=== PATIENT | male | born 1950 | race African-American/Black ===

== ENCOUNTER 2021-04-28 14:47 | Inpatient (IN) | payer MEDICAID, OTHER ==
[~2021-04-28] VITALS: Ht 172.7 cm; Wt 71.7 kg
[~2021-04-28 14:47] MED LIST: ASPI-1406 PO; BENA10TA74 PO; DORZ10DR8 BOTHEYE; HYDR25TA PO; LEVO500T2 PO; METH-773 PO; MIRT-90 PO; PHEN100C4 PO; PRAN1 PO; RISP3 PO; TRAV2.5D9 BOTHEYE; [UNRECOGNIZED DRUG - CODE] MC; [UNRECOGNIZED DRUG - CODE] PO
[2021-04-28 17:38] LABS: CHLORIDE 109 mEq/L (98-107)
[2021-04-28 17:42] LABS: BASOPHILS % 0.5 % (0.0-2.0); EOSINOPHILS % 1.2 % (0.0-5.0); HEMATOCRIT. 43.9 % (42.0-52.0); HEMOGLOBIN. 14.7 g/dL (14.0-18.0); LYMPHOCYTES % 18.8 % (20.0-50.0); MEAN CORPUSCULAR HEMOGLOBIN 30.8 pg (28.0-32.0); MEAN CORPUSCULAR VOLUME 92.2 fL (80.0-94.0); MEAN PLATELET VOLUME 9.6 fl (7.4-10.4); MONOCYTES % 5.6 % (2.0-8.0); NEUTROPHILS % 73.9 % (40.0-76.0); PLATELET 339 x1000/uL (130-400); RED BLOOD CELL COUNT 4.76 mill/uL (4.7-6.1)
[2021-04-28 19:31] LABS: ETHANOL BLOOD < 10 mg/dL
[2021-04-28 20:11] LABS: CLARITY URINE CLEAR (CLEAR); COLOR URINE YELLOW (YELLOW); KETONES URINE NEGATIVE (NEGATIVE); LEUKOCYTE ESTERASE URINE NEGATIVE (NEGATIVE); NITRITE URINE NEGATIVE (NEGATIVE); OCCULT BLOOD URINE NEGATIVE (NEGATIVE); PH URINE 5.5 (4.5-8.0); PROTEIN URINE NEGATIVE (NEGATIVE); SPECIFIC GRAVITY URINE 1.026 (1.005-1.030)
[2021-04-28 20:21] LABS: *COCAINE SCREEN URINE NEGATIVE (NEGATIVE); OPIATES URINE SCREEN NEGATIVE (NEGATIVE); PHENCYCLIDINE URINE SCREEN NEGATIVE (NEGATIVE)
[2021-04-28 20:22] LABS: *AMPHETAMINES SCREEN URINE NEGATIVE (NEGATIVE); *BARBITURATES SCREEN URINE NEGATIVE (NEGATIVE); *BENZODIAZEPINES SCREEN URINE NEGATIVE (NEGATIVE); CANNABINOID URINE SCREEN PRESUMTIVE POSITIVE (NEGATIVE); METHADONE URINE SCREEN NEGATIVE (NEGATIVE)
[2021-04-29 08:45] VITALS: BP 168/85
[2021-04-29] MEDS ORDERED: METF500S7 PO (09:15)
[2021-04-29] MEDS ORDERED: INSU100I28 SQ (09:16)
[2021-04-29] MEDS ORDERED: ATOR-2 PO (09:20)
[2021-04-29] MEDS ORDERED: QUET25TA PO (09:20)
[2021-04-29] MEDS ORDERED: SACU1TAB MT (09:20)
[2021-04-29] MEDS ORDERED: SPIR25TA6 PO (09:20)
[2021-04-29] MEDS ORDERED: CARV12.545 PO (09:20)
[2021-04-29] MEDS ORDERED: DEXTROSE 50% WATER 50ML SYRINGE IV PRN (10:00)
[2021-04-29] MEDS: BLOOD SUGAR DIAGNOSTIC STRIP TEST SCH ×3 (11:40→21:08)
[2021-04-29 12:05] VITALS: BP 138/76
[2021-04-29 12:10] LABS: BASOPHILS % 0.7 % (0.0-2.0); EOSINOPHILS % 1.6 % (0.0-5.0); HEMATOCRIT. 43.7 % (42.0-52.0); HEMOGLOBIN. 13.9 g/dL (14.0-18.0); LYMPHOCYTES % 32.4 % (20.0-50.0); MEAN CORPUSCULAR HEMOGLOBIN 29.7 pg (28.0-32.0); MEAN CORPUSCULAR VOLUME 93.3 fL (80.0-94.0); MEAN PLATELET VOLUME 9.1 fl (7.4-10.4); MONOCYTES % 6.9 % (2.0-8.0); NEUTROPHILS % 58.4 % (40.0-76.0); PLATELET 341 x1000/uL (130-400); RED BLOOD CELL COUNT 4.69 mill/uL (4.7-6.1); RED CELL DISTRIBUTION WIDTH 14.4 % (11.6-14.6)
[2021-04-29] MEDS: INSULIN LISPRO 100 UNITS/ML SUBCUT SCH ×3 (12:10→21:00)
[2021-04-29 12:16] LABS: CHLORIDE 109 mEq/L (98-107)
[2021-04-29] MEDS: SPIRONOLACTONE 25MG TABLET PO SCH (12:45)
[2021-04-29] MEDS: ASPIRIN 81MG TABLET PO SCH (12:45)
[2021-04-29] MEDS: AMLODIPINE 5MG TABLET PO SCH (12:45)
[2021-04-29 16:00] VITALS: BP 134/83
[2021-04-29] MEDS: METFORMIN HCL 500MG TABLET PO SCH (17:50)
[2021-04-29 20:00] VITALS: BP 137/82
[2021-04-29] MEDS ORDERED: ATORVASTATIN CALCIUM 40MG TABLET PO SCH (21:00)
[2021-04-29] MEDS ORDERED: QUETIAPINE FUMARATE 25MG TABLET PO SCH (21:00)
[2021-04-30] VITALS: BP 133/76
[2021-04-30 04:00] VITALS: BP 133/82
[2021-04-30] MEDS: METFORMIN HCL 500MG TABLET PO SCH (06:15)
[2021-04-30] MEDS: BLOOD SUGAR DIAGNOSTIC STRIP TEST SCH ×2 (06:53→10:52)
[2021-04-30] MEDS: INSULIN LISPRO 100 UNITS/ML SUBCUT SCH (06:53)
[2021-04-30 08:00] VITALS: BP 122/72
[2021-04-30] MEDS: ASPIRIN 81MG TABLET PO SCH (09:11)
[2021-04-30] MEDS: AMLODIPINE 5MG TABLET PO SCH (09:11)
[2021-04-30] MEDS: SPIRONOLACTONE 25MG TABLET PO SCH (09:11)
[2021-04-30 12:00] VITALS: BP 131/73
[2021-04-30 15:03] VITALS: BP 131/73
== END 2021-04-30 16:15 | disposition home or self-care (01) | DRG 48 ==
LOC: ER 14:58 → MICUSO 23:44 → 7EST 04-29 08:35
PROVIDERS: ADMIT Family Medicine; ATTEND Family Medicine
DX: G90.8 Other disorders of autonomic nervous system (principal); N17.9 Acute kidney failure, unspecified; F03.90 Unspecified dementia, unspecified severity, without behavioral disturbance, psychotic disturbance, mood disturbance, and anxiety; I50.9 Heart failure, unspecified; I11.0 Hypertensive heart disease with heart failure; I16.0 Hypertensive urgency; E78.5 Hyperlipidemia, unspecified; Z20.822 Contact with and (suspected) exposure to COVID-19; E11.9 Type 2 diabetes mellitus without complications; I44.7 Left bundle-branch block, unspecified; F12.90 Cannabis use, unspecified, uncomplicated; Z79.899 Other long term (current) drug therapy; Z79.82 Long term (current) use of aspirin; Z79.2 Long term (current) use of antibiotics
CPT/HCPCS: 36415; 71045; 80048; 80053; 80305; 80320; 81003; 82962; 83036; 83880; 84484; 85025; 87426; 93005; 93306; 93880; 99285; G0480